=== PATIENT | male | born 1960 | race Caucasian/White ===

== ENCOUNTER 2019-02-16 07:59 | Emergency (ER) | payer OTHER ==
[~2019-02-16] VITALS: Ht 175.2 cm; Wt 93.4 kg
--- NOTE | ~2019-02-16 | EKG ---
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
[~2019-02-16 07:59] MED LIST: ALBUTEROL2.5 MG/0.5 INH; AUGMENTIN 875 M1 TAB PO; BACTROBAN OINT22 GM PO; CIPRODEX 0.3%-7.5 ML OT; CLARITIN10 MG PO; CRESTOR20 MG PO; CRESTOR40 MG; DAYPRO600 M1 PO; DICLOFENAC SOD50 MG PO; EC NAPROSYN500 MG PO; FLEXERIL10 MG PO; FLONASE0.05 MG/AC NS; GEMFIBROZIL600 MG PO; GLIPIZIDE XL5 MG PO; GLUCOPHAGE1000 MG PO; GLYBURIDE5 MG; HYDROCODONE BIT1 T11 PO; HYDROCODONE BIT1 T12 PO; JANUMET 1000 MG1 TA1 PO; LANTUS100 U/ML SC; LEVOFLOXACIN500 MG PO; LIPITOR20 MG PO; LOMOTIL 0.025 M1 TA1 PO; MEDROL DOSEPAK4 MG PO; METFORMIN1000 MG PO; MOBIC15 MG PO; NAPROSYN500 MG PO; NOVOLOG FLEX100 U/ML SC; PREDNICOT20 MG PO; PREDNISONE20 MG PO; PRILOSEC20 M1 PO; ROBAXIN750 MG PO; ROBITUSSIN-AC 160 ML PO; TRICOR145 MG PO; VIBRAMYCIN100 MG PO; VICODIN 500 MG-1 TAB PO; VITAMIN D400 I1; ZESTRIL,PRINIVIL5 MG PO; ZITHROMAX Z PA250 MG PO; [UNRECOGNIZED DRUG - OTHER]; [UNRECOGNIZED DRUG - REMARK]; [UNRECOGNIZED DRUG - REMARK]
[2019-02-16 08:28] LABS: BASO # 0.1 10*3/uL (0.0-0.1); BASO % 0.9 % (0.0-1.0); EOS # 0.5 10*3/uL (0.0-0.4); HEMATOCRIT 42.9 % (42.0-52.0); HEMOGLOBIN 14.2 g/dl (14.0-18.0); LYMPH # 0.9 10*3/uL (1.3-4.4); LYMPH % 11.5 % (27.0-41.0); MEAN CELL VOLUME 87.4 fl (80.0-94.0); MEAN CORPUSCULAR HGB 28.9 pg (27.0-31.0); MEAN CORPUSCULAR HGB CONC 33.1 g/dl (33.0-37.0); MEAN PLATELET VOLUME 10.2 fl (9.6-12.3); MONO # 0.8 10*3/uL (0.1-1.0); MONO % 10.2 % (3.0-9.0); NEUT # 5.2 10*3/uL (2.3-7.9); NEUT % 69.8 % (47.0-73.0); PLATELET COUNT AUTOMATED 181 10*3/uL (130-400); RED BLOOD COUNT 4.91 10*6/uL (4.50-5.90); RED CELL DISTRI WIDTH 14.2 % (0-14.5); WHITE BLOOD COUNT 7.5 10*3/uL (4.8-10.8)
[2019-02-16 08:47] LABS: ALBUMIN 3.4 gm/dl (3.1-4.5); ALKALINE PHOSPHATASE 252 U/L (45-117); BUN 40 mg/dl (7-24); CHLORIDE 102 mmol/L (98-107); CREATININE 1.65 mg/dL (0.70-1.30); POTASSIUM 4.6 mmol/L (3.5-5.1); SGOT/AST 87 IU/L (3-35); SGPT/ALT 266 U/L (12-78); SODIUM 134 mmol/L (136-145)
[2019-02-16 08:52] LABS: TROPONIN I < 0.015 ng/ml (<0.045)
== END 2019-02-16 10:09 | disposition home or self-care (01) ==
LOC: ED 07:59
PROVIDERS: Emergency Medicine
DX: K52.9 Noninfective gastroenteritis and colitis, unspecified (principal); E86.0 Dehydration; R07.9 Chest pain, unspecified; J02.9 Acute pharyngitis, unspecified; E11.9 Type 2 diabetes mellitus without complications; Z79.899 Other long term (current) drug therapy; Z79.4 Long term (current) use of insulin

== ENCOUNTER → 2019-03-03 | Outpatient (CLI) | payer OTHER, BC | END | disposition home or self-care (01) | LOC: US 09:21 | DX: K80.20 Calculus of gallbladder without cholecystitis without obstruction (principal) ==

== ENCOUNTER 2019-09-25 10:38 | Emergency (ER) | payer OTHER ==
[~2019-09-25] VITALS: Ht 175.2 cm; Wt 96.6 kg
[2019-09-25 11:20] LABS: BASO # 0.1 10*3/uL (0.0-0.1); BASO % 0.5 % (0.0-1.0); EOS # 0.3 10*3/uL (0.0-0.4); EOS % 2.5 % (1.0-4.0); HEMATOCRIT 41.2 % (42.0-52.0); HEMOGLOBIN 13.6 g/dl (14.0-18.0); LYMPH # 0.9 10*3/uL (1.3-4.4); LYMPH % 7.5 % (27.0-41.0); MEAN CELL VOLUME 87.7 fl (80.0-94.0); MEAN CORPUSCULAR HGB 28.9 pg (27.0-31.0); MEAN PLATELET VOLUME 9.5 fl (9.6-12.3); MONO # 0.7 10*3/uL (0.1-1.0); MONO % 5.9 % (3.0-9.0); NEUT # 9.7 10*3/uL (2.3-7.9); NEUT % 83.3 % (47.0-73.0); PLATELET COUNT AUTOMATED 185 10*3/uL (130-400); RED CELL DISTRI WIDTH 12.8 % (0-14.5); WHITE BLOOD COUNT 11.7 10*3/uL (4.8-10.8)
[2019-09-25 11:34] LABS: ALBUMIN 3.6 gm/dl (3.1-4.5); ALKALINE PHOSPHATASE 133 U/L (45-117); BUN 23 mg/dl (7-24); CHLORIDE 100 mmol/L (98-107); CREATININE 1.25 mg/dL (0.70-1.30); POTASSIUM 4.4 mmol/L (3.5-5.1); SGOT/AST 70 IU/L (3-35); SGPT/ALT 118 U/L (12-78); SODIUM 133 mmol/L (136-145); TOTAL PROTEIN 7.5 gm/dL (6.4-8.2)
[2019-09-25] MEDS ORDERED: IMODIUM A-D2 M2 PO (13:15)
[2019-09-25] MEDS ORDERED: ZOFRAN4 MG PO (13:15)
[2019-09-25] MEDS ORDERED: THORAZINE50 MG PO (13:15)
== END 2019-09-25 13:22 | disposition home or self-care (01) ==
LOC: ED 10:38
PROVIDERS: Emergency Medicine
DX: K52.9 Noninfective gastroenteritis and colitis, unspecified (principal); R06.6 Hiccough; R94.5 Abnormal results of liver function studies; I10 Essential (primary) hypertension; E11.9 Type 2 diabetes mellitus without complications; M10.9 Gout, unspecified; E78.00 Pure hypercholesterolemia, unspecified; F17.200 Nicotine dependence, unspecified, uncomplicated; Z79.899 Other long term (current) drug therapy; Z79.4 Long term (current) use of insulin

== ENCOUNTER → 2019-11-22 | Outpatient (CLI) | payer OTHER ==
[~2019-11-22] MED LIST changes: +IMODIUM A-D2 M2 PO; +THORAZINE50 MG PO; +ZOFRAN4 MG PO
== END | disposition home or self-care (01) ==
LOC: RAD 07:48
DX: K21.9 Gastro-esophageal reflux disease without esophagitis (principal)

== ENCOUNTER 2020-07-06 09:26 | Inpatient (IN) | payer OTHER ==
[~2020-07-06] VITALS: Ht 175 cm; Wt 91.0 kg
[2020-07-06 09:32] VITALS: BP 127/65
[2020-07-06 10:01] LABS: MEAN CELL VOLUME 83.5 fl (80.0-94.0); MEAN CORPUSCULAR HGB 27.3 pg (27.0-31.0); MEAN CORPUSCULAR HGB CONC 32.8 g/dl (33.0-37.0); MEAN PLATELET VOLUME 8.9 fl (9.6-12.3); PLATELET COUNT AUTOMATED 221 10*3/uL (130-400); RED BLOOD COUNT 4.79 10*6/uL (4.50-5.90); RED CELL DISTRI WIDTH 13.3 % (0-14.5); WHITE BLOOD COUNT 11.9 10*3/uL (4.8-10.8)
[2020-07-06 10:13] LABS: BILIRUBIN 2+ (Negative); BLOOD Trace-Lysed (Negative); CLARITY Clear (Clear); COLOR Dark Yellow (Yellow); GLUCOSE Negative (Negative); KETONE Trace (Negative); LEUKO ESTERASE Trace (Negative); NITRITE Negative (Negative); PH 5.5 (4.5-8.0)
[2020-07-06 10:17] LABS: ALBUMIN 2.7 gm/dl (3.1-4.5); ALKALINE PHOSPHATASE 258 U/L (45-117); BUN 25 mg/dl (7-24); CHLORIDE 94 mmol/L (98-107); CREATININE 1.16 mg/dL (0.70-1.30); POTASSIUM 3.6 mmol/L (3.5-5.1); SGOT/AST 71 IU/L (3-35); SGPT/ALT 154 U/L (12-78); SODIUM 128 mmol/L (136-145); TOTAL PROTEIN 7.5 gm/dL (6.4-8.2)
[2020-07-06 10:18] LABS: PLATELET SUFFICIENCY NORMAL (NORMAL); TOTAL CELLS COUNTED 100 #CELLS
[2020-07-06 10:22] LABS: LIPASE 2024 U/L (73-393); TROPONIN I < 0.015 ng/ml (<0.045)
[2020-07-06 10:26] LABS: BACTERIA 2+
[2020-07-06] MEDS ORDERED: HUMALOG 751 UNIT/0.0 SC (13:46)
[2020-07-06] MEDS ORDERED: LIPITOR20 MG PO (13:47)
[2020-07-06] MEDS ORDERED: GLUCOPHAGE1000 MG PO (13:47)
[2020-07-06] MEDS ORDERED: LOPID600 M1 PO (13:47)
[2020-07-06] MEDS ORDERED: OMEPRAZOLE20 M2 PO (13:48)
[2020-07-06] MEDS ORDERED: NORVASC5 MG PO (13:48)
[2020-07-06] MEDS ORDERED: AMARYL1 M1 PO (13:48)
[2020-07-06 14:51] VITALS: BP 126/67
[2020-07-06 16:00] VITALS: BP 130/79
[2020-07-06 19:26] VITALS: BP 126/80
[2020-07-07] VITALS (9 sets, daily range): BP systolic 94–119; BP diastolic 34–77
[2020-07-07 05:58] LABS: BASO % 0.3 % (0.0-1.0); EOS # 0.2 10*3/uL (0.0-0.4); HEMATOCRIT 34.1 % (42.0-52.0); LYMPH # 0.9 10*3/uL (1.3-4.4); LYMPH % 9.9 % (27.0-41.0); MEAN CELL VOLUME 85.9 fl (80.0-94.0); MEAN CORPUSCULAR HGB CONC 32.6 g/dl (33.0-37.0); MEAN PLATELET VOLUME 9.6 fl (9.6-12.3); MONO # 0.7 10*3/uL (0.1-1.0); PLATELET COUNT AUTOMATED 200 10*3/uL (130-400); RED BLOOD COUNT 3.97 10*6/uL (4.50-5.90); RED CELL DISTRI WIDTH 13.4 % (0-14.5); WHITE BLOOD COUNT 8.8 10*3/uL (4.8-10.8)
[2020-07-07 06:00] LABS: ALBUMIN 2.3 gm/dl (3.1-4.5); ALKALINE PHOSPHATASE 192 U/L (45-117); BUN 17 mg/dl (7-24); CHLORIDE 102 mmol/L (98-107); CHOLESTEROL 106 mg/dL (<200); CREATININE 0.89 mg/dL (0.70-1.30); HDL CHOLESTEROL 12 mg/dl (40-60); LDL CHOLESTEROL 58 mg/dL (9-159); LIPASE 516 U/L (73-393); POTASSIUM 3.6 mmol/L (3.5-5.1); SGOT/AST 35 IU/L (3-35); SGPT/ALT 99 U/L (12-78); SODIUM 133 mmol/L (136-145); TOTAL PROTEIN 6.3 gm/dL (6.4-8.2); TRIGLYCERIDES 180 mg/dl (<150); VLDL CHOLESTEROL 36 mg/dL (6-40)
[2020-07-07 06:19] LABS: ACT PARTIAL THROMBO TIME 27.5 SECONDS (20.0-32.1)
[2020-07-07 07:11] LABS: VITAMIN D, 25-HYDROXY 33.8 ng/mL (30-100)
[2020-07-08] VITALS: BP 106/53
[2020-07-08 05:06] LABS: HEP B CORE AB, IGM Negative (Negative); HEPATITIS B SURFACE AG Negative (Negative); HEPATITIS C VIRUS ANTIBODY 0.2 s/co (0.0-0.9)
[2020-07-08 07:18] LABS: BASO # 0.1 10*3/uL (0.0-0.1); BASO % 0.6 % (0.0-1.0); EOS # 0.2 10*3/uL (0.0-0.4); HEMATOCRIT 32.8 % (42.0-52.0); LYMPH # 1.3 10*3/uL (1.3-4.4); LYMPH % 12.8 % (27.0-41.0); MEAN CELL VOLUME 87.7 fl (80.0-94.0); MEAN CORPUSCULAR HGB 27.5 pg (27.0-31.0); MEAN CORPUSCULAR HGB CONC 31.4 g/dl (33.0-37.0); MEAN PLATELET VOLUME 9.5 fl (9.6-12.3); MONO % 9.9 % (3.0-9.0); NEUT # 7.2 10*3/uL (2.3-7.9); NEUT % 73.1 % (47.0-73.0); PLATELET COUNT AUTOMATED 201 10*3/uL (130-400); RED BLOOD COUNT 3.74 10*6/uL (4.50-5.90); RED CELL DISTRI WIDTH 13.7 % (0-14.5); WHITE BLOOD COUNT 9.9 10*3/uL (4.8-10.8)
[2020-07-08 07:53] LABS: ALBUMIN 2.2 gm/dl (3.1-4.5); ALKALINE PHOSPHATASE 187 U/L (45-117); BUN 13 mg/dl (7-24); CHLORIDE 102 mmol/L (98-107); CREATININE 0.88 mg/dL (0.70-1.30); LIPASE 323 U/L (73-393); POTASSIUM 3.9 mmol/L (3.5-5.1); SGOT/AST 27 IU/L (3-35); SGPT/ALT 72 U/L (12-78); SODIUM 132 mmol/L (136-145); TOTAL PROTEIN 6.3 gm/dL (6.4-8.2)
[2020-07-08 08:00] VITALS: BP 114/70
[2020-07-08 14:00] VITALS: BP 116/73
[2020-07-08 16:00] VITALS: BP 110/64
[2020-07-09] VITALS: BP 112/63
[2020-07-09 07:22] LABS: HEMATOCRIT 32.8 % (42.0-52.0); MEAN CELL VOLUME 87.5 fl (80.0-94.0); MEAN PLATELET VOLUME 9.8 fl (9.6-12.3); PLATELET COUNT AUTOMATED 224 10*3/uL (130-400); RED BLOOD COUNT 3.75 10*6/uL (4.50-5.90); RED CELL DISTRI WIDTH 13.6 % (0-14.5); WHITE BLOOD COUNT 9.8 10*3/uL (4.8-10.8)
[2020-07-09 07:55] LABS: ALBUMIN 2.2 gm/dl (3.1-4.5); BUN 10 mg/dl (7-24); CHLORIDE 102 mmol/L (98-107); POTASSIUM 3.9 mmol/L (3.5-5.1); SGOT/AST 26 IU/L (3-35); SGPT/ALT 61 U/L (12-78); SODIUM 135 mmol/L (136-145)
[2020-07-09 07:56] LABS: ALKALINE PHOSPHATASE 169 U/L (45-117); TOTAL PROTEIN 6.8 gm/dL (6.4-8.2)
[2020-07-09 08:00] VITALS: BP 134/69
[2020-07-09 08:18] LABS: BASOPHILS 1 % (0-1); PLATELET SUFFICIENCY NORMAL (NORMAL); TOTAL CELLS COUNTED 100 #CELLS
[2020-07-09 12:00] VITALS: BP 116/62
[2020-07-09 16:00] VITALS: BP 123/61
[2020-07-09 20:00] VITALS: BP 129/64
[2020-07-10] VITALS (9 sets, daily range): BP systolic 107–140; BP diastolic 46–65
[2020-07-10 06:50] LABS: HEMATOCRIT 34.7 % (42.0-52.0); MEAN CELL VOLUME 85.3 fl (80.0-94.0); MEAN CORPUSCULAR HGB 27.5 pg (27.0-31.0); MEAN CORPUSCULAR HGB CONC 32.3 g/dl (33.0-37.0); MEAN PLATELET VOLUME 9.3 fl (9.6-12.3); PLATELET COUNT AUTOMATED 291 10*3/uL (130-400); RED BLOOD COUNT 4.07 10*6/uL (4.50-5.90); RED CELL DISTRI WIDTH 13.2 % (0-14.5); WHITE BLOOD COUNT 11.7 10*3/uL (4.8-10.8)
[2020-07-10 07:27] LABS: CHLORIDE 100 mmol/L (98-107); POTASSIUM 3.7 mmol/L (3.5-5.1); SODIUM 135 mmol/L (136-145)
[2020-07-10 07:34] LABS: ALBUMIN 2.3 gm/dl (3.1-4.5); ALKALINE PHOSPHATASE 181 U/L (45-117); BUN 9 mg/dl (7-24); CREATININE 0.91 mg/dL (0.70-1.30); LIPASE 347 U/L (73-393); SGOT/AST 23 IU/L (3-35); SGPT/ALT 55 U/L (12-78); TOTAL PROTEIN 7.1 gm/dL (6.4-8.2)
[2020-07-10 07:41] LABS: BASOPHILS 2 % (0-1); PLATELET SUFFICIENCY NORMAL (NORMAL); TOTAL CELLS COUNTED 100 #CELLS; TOXIC GRANULATION SLIGHT
[2020-07-10 07:42] LABS: POLYCHROMASIA SLIGHT
[2020-07-11] VITALS: BP 108/63
[2020-07-11 06:27] LABS: BASO % 0.3 % (0.0-1.0); LYMPH # 0.9 10*3/uL (1.3-4.4); LYMPH % 7.7 % (27.0-41.0); MEAN CELL VOLUME 86.3 fl (80.0-94.0); MEAN CORPUSCULAR HGB 27.7 pg (27.0-31.0); MEAN CORPUSCULAR HGB CONC 32.1 g/dl (33.0-37.0); MEAN PLATELET VOLUME 9.8 fl (9.6-12.3); MONO # 0.4 10*3/uL (0.1-1.0); MONO % 3.6 % (3.0-9.0); NEUT # 10.2 10*3/uL (2.3-7.9); PLATELET COUNT AUTOMATED 272 10*3/uL (130-400); RED BLOOD COUNT 3.94 10*6/uL (4.50-5.90); RED CELL DISTRI WIDTH 13.3 % (0-14.5); WHITE BLOOD COUNT 11.9 10*3/uL (4.8-10.8)
[2020-07-11 06:38] LABS: ALBUMIN 2.2 gm/dl (3.1-4.5); BUN 18 mg/dl (7-24); CHLORIDE 100 mmol/L (98-107); SODIUM 133 mmol/L (136-145)
[2020-07-11 06:41] LABS: ALKALINE PHOSPHATASE 158 U/L (45-117); CREATININE 1.04 mg/dL (0.70-1.30); SGOT/AST 22 IU/L (3-35); SGPT/ALT 52 U/L (12-78); TOTAL PROTEIN 6.8 gm/dL (6.4-8.2)
[2020-07-11 08:00] VITALS: BP 125/63
[2020-07-11 12:00] VITALS: BP 126/52
[2020-07-11] MEDS ORDERED: HYDROCODONE-AC1 EAC1 PO ×2 (12:02→12:06)
[2020-07-11] MEDS ORDERED: AUGMENTIN 875875 MG PO (12:13)
== END 2020-07-11 13:00 | disposition home or self-care (01) | DRG 417 ==
LOC: ED 09:26 → EDHOLD 12:21 → 5E 12:21 → EDHOLD 13:31 → 5E 07-07 17:39
PROVIDERS: Emergency Medicine; Internal Medicine; Registered Nurse; Social Worker Clinical; Student in an Organized Health Care Education/Training Program; Surgery; ADMIT Emergency Medicine; ATTEND Emergency Medicine
PROC: 0F798DZ Dilation of Common Bile Duct with Intraluminal Device, Via Natural or Artificial Opening Endoscopic (ICD-10-PCS; principal; 2020-07-07)
PROC: 0FC98ZZ Extirpation of Matter from Common Bile Duct, Via Natural or Artificial Opening Endoscopic (ICD-10-PCS; 2020-07-07)
PROC: 0FT44ZZ Resection of Gallbladder, Percutaneous Endoscopic Approach (ICD-10-PCS; 2020-07-10)
DX: K85.10 Biliary acute pancreatitis without necrosis or infection (principal); E43 Unspecified severe protein-calorie malnutrition; K80.63 Calculus of gallbladder and bile duct with acute cholecystitis with obstruction; E87.1 Hypo-osmolality and hyponatremia; K83.09 Other cholangitis; D64.9 Anemia, unspecified; E11.65 Type 2 diabetes mellitus with hyperglycemia; Z20.822 Contact with and (suspected) exposure to COVID-19; E78.5 Hyperlipidemia, unspecified; K21.00 Gastro-esophageal reflux disease with esophagitis, without bleeding; E83.39 Other disorders of phosphorus metabolism; R74.01 Elevation of levels of liver transaminase levels; I10 Essential (primary) hypertension; Z87.891 Personal history of nicotine dependence; Z82.49 Family history of ischemic heart disease and other diseases of the circulatory system; Z79.4 Long term (current) use of insulin; Z79.899 Other long term (current) drug therapy; Z68.29 Body mass index [BMI] 29.0-29.9, adult

== ENCOUNTER → 2020-10-30 | Outpatient (CLI) | payer OTHER ==
[~2020-10-30] MED LIST changes: +AMARYL1 M1 PO; +AUGMENTIN 875875 MG PO; +HUMALOG 751 UNIT/0.0 SC; +HYDROCODONE-AC1 EAC1 PO; +LOPID600 M1 PO; +NORVASC5 MG PO; +OMEPRAZOLE20 M2 PO
== END | disposition home or self-care (01) ==
LOC: COVID19 07:47
PROVIDERS: ATTEND Internal Medicine Gastroenterology
DX: Z01.818 Encounter for other preprocedural examination (principal); Z20.822 Contact with and (suspected) exposure to COVID-19

== ENCOUNTER → 2021-11-28 | Outpatient (CLI) | payer OTHER | END | disposition home or self-care (01) | LOC: COVID19 09:56 | PROVIDERS: ATTEND Internal Medicine | DX: U07.1 COVID-19 (principal) ==

== ENCOUNTER → 2022-06-19 | Outpatient (CLI) | payer SELFPAY ==
[2022-06-19 10:01] LABS: BASO # 0.1 10*3/uL (0.0-0.1); BASO % 1.8 % (0.0-1.0); EOS # 0.4 10*3/uL (0.0-0.4); EOS % 7.5 % (1.0-4.0); HEMATOCRIT 45.8 % (42.0-52.0); LYMPH # 1.8 10*3/uL (1.3-4.4); LYMPH % 31.6 % (27.0-41.0); MEAN CELL VOLUME 87.1 fl (80.0-94.0); MEAN CORPUSCULAR HGB 28.5 pg (27.0-31.0); MEAN CORPUSCULAR HGB CONC 32.8 g/dl (33.0-37.0); MEAN PLATELET VOLUME 9.6 fl (9.6-12.3); MONO # 0.5 10*3/uL (0.1-1.0); MONO % 8.3 % (3.0-9.0); NEUT # 2.8 10*3/uL (2.3-7.9); NEUT % 50.3 % (47.0-73.0); PLATELET COUNT AUTOMATED 213 10*3/uL (130-400); RED BLOOD COUNT 5.26 10*6/uL (4.50-5.90); RED CELL DISTRI WIDTH 12.8 % (0-14.5); WHITE BLOOD COUNT 5.6 10*3/uL (4.8-10.8)
[2022-06-19 10:17] LABS: ALKALINE PHOSPHATASE 78 U/L (46-116); BUN 13 mg/dl (9-23); CHLORIDE 104 mmol/L (98-107); POTASSIUM 4.5 mmol/L (3.4-5.1); SGPT/ALT 57 U/L (10-49); TOTAL PROTEIN 7.7 gm/dL (6.0-8.0)
== END | disposition home or self-care (01) ==
LOC: RESCLI 07:55
PROVIDERS: ATTEND Internal Medicine
DX: Z23 Encounter for immunization (principal); I10 Essential (primary) hypertension; E11.9 Type 2 diabetes mellitus without complications; E78.5 Hyperlipidemia, unspecified; K21.9 Gastro-esophageal reflux disease without esophagitis; M54.9 Dorsalgia, unspecified; M10.9 Gout, unspecified; K85.10 Biliary acute pancreatitis without necrosis or infection; Z68.32 Body mass index [BMI] 32.0-32.9, adult; Z90.49 Acquired absence of other specified parts of digestive tract; Z87.891 Personal history of nicotine dependence; Z13.9 Encounter for screening, unspecified

== ENCOUNTER → 2022-06-26 | Outpatient (CLI) | payer MEDICAID | END | disposition home or self-care (01) | LOC: RESCLI 03:19 | PROVIDERS: ATTEND Family Medicine | DX: K21.9 Gastro-esophageal reflux disease without esophagitis (principal); E11.9 Type 2 diabetes mellitus without complications; E78.5 Hyperlipidemia, unspecified; I10 Essential (primary) hypertension; J30.2 Other seasonal allergic rhinitis; M54.9 Dorsalgia, unspecified; E55.9 Vitamin D deficiency, unspecified; Z90.49 Acquired absence of other specified parts of digestive tract; Z98.890 Other specified postprocedural states; Z72.89 Other problems related to lifestyle; Z79.84 Long term (current) use of oral hypoglycemic drugs; Z79.82 Long term (current) use of aspirin; Z79.899 Other long term (current) drug therapy ==

== ENCOUNTER → 2022-09-24 | Outpatient (CLI) | payer SELFPAY | END | disposition home or self-care (01) | LOC: RESCLI 01:25 | PROVIDERS: ATTEND Family Medicine | DX: M79.89 Other specified soft tissue disorders (principal); K21.9 Gastro-esophageal reflux disease without esophagitis; E78.5 Hyperlipidemia, unspecified; I10 Essential (primary) hypertension; M54.9 Dorsalgia, unspecified; E11.9 Type 2 diabetes mellitus without complications; Z79.899 Other long term (current) drug therapy; Z79.84 Long term (current) use of oral hypoglycemic drugs; Z87.891 Personal history of nicotine dependence ==